=== PATIENT | male | born 1965 | race Caucasian/White ===

== ENCOUNTER 2022-11-21 09:40 | Emergency (ER) | payer BC ==
--- OUTSIDE RECORDS SUMMARY | 2022-11-21 09:47 | XMS REPORT | Continuity of Care Document ---
:1965 Author Organization [facility] t Address [address] [place] [address] Care Team Providers Name Role Phone Char Nation MD Primary Care Physician [phone] SACHIN FELIZ Attending Clinician Unavailable Char Nation MD Attending Clinician [phone] Annette Bowman MD Attending Clinician Denisha Maldonado Attending Clinician ANNETTE BOWMAN Attending Clinician Unavailable Doctor Unassigned, [place] Attending Clinician Unavailable DAMARIS RODRIGUEZ Attending Clinician Unavailable Damaris Rodriguez MD Attending Clinician Bret Kwong MD Attending Clinician Gideon Bustos Attending Clinician KELSEY CHRISTIANSON Attending Clinician Unavailable Only, Ang Db Test Attending Clinician Unavailable Kelsey Pendleton Attending Clinician Jass DAVIS, Kalyani Dunne Attending Clinician Unavailable DENISHA LUTZ Attending Clinician Unavailable JANUARY SAM Attending Clinician Unavailable JANUARY SAM Attending Clinician Unavailable CHAR NATION Attending Clinician Unavailable ARMANDO GÓMEZ Attending Clinician Unavailable Armando Gómez MD Attending Clinician , [facility] Surg Spec Procedure Attending Clinician Unavailable Nurse, [facility] Surgery Gu Attending Clinician Unavailable Zen DAVIS, Aria T Attending Clinician Unavailable Green DECKHAND SPONGE BOAT, Sachin Attending Clinician [place] Attending Clinician Unavailable OMAGHOMI, OMAYEMI Attending Clinician Unavailable Omaghomi DECKHAND SPONGE BOAT, Omayemi Attending Clinician Ervin DECKHAND SPONGE BOATEdilma Paulson Attending Clinician MUNIRA GUTIERREZ Attending Clinician Unavailable Munira Gutierrez MD Attending Clinician Pob, [facility] Lab Main Attending Clinician Unavailable EDILMA SOLIS Attending Clinician Unavailable Tanja Bryan MD Attending Clinician TANJA BRYAN Attending Clinician Unavailable , [facility] Lab Attending Clinician Unavailable Alexandro Daugherty DO Attending Clinician Lab, [facility] Fam Pob I Attending Clinician Unavailable Provider, [facility] Attending Clinician Unavailable Hannah Ospina MD Attending Clinician HANNAH OSPINA Attending Clinician Unavailable JANUARY SAM Admitting Clinician Unavailable MUNIRA GUTIERREZ Admitting Clinician Unavailable CHAR NATION Admitting Clinician Unavailable Payers Payer Name Policy Type Policy Number Effective Date Expiration Date S kalin [facility] 2 [id number] 2022 00:00:00 [employer] 9 [id number] 2022 [place] (ERS-BC[place] 00:00:00 CAPITATED) Problems Condition Condition Condition Status Onset Resolution Last Treating Co mments Source Name Details Category Date Date Treatment Clinician Date Complex Complex Disease Active [facility] tear of tear of 3-29 Health medial medial 00:00: meniscus meniscus 00 of left of left knee as knee as current current injury injury Other Other Disease Active Univers fatigue fatigue 4-11 ity of 00:00: [place] [address] Medical Branch Arthralgia Arthralgia Disease Active 2021-0 U nivers , , 4-11 ity of unspecif[place] 00 Medical Branch Hand pain, Hand pain, Disease Active 2020- U nivers left left 2-02 ity of 00:00: [place] 00 Medical Branch Chronic Chronic Disease Active 2020- Univers right right 2-02 ity of shoulder shoulder 00:00: [place] pain pain 00 Medical Branch Muscle Muscle Disease Active 2019 Univers spasm spasm 1-04 ity of 00:00: [place] 00 Medical Branch Allergic Allergic Disease Active 2019- Unive rs rhinitis, rhinitis, 1-04 ity of unspecifie unspecifie [place] Medical seasonalit seasonalit Br anch y, y, unspecifie unspecifie d trigger d trigger Non-produc Non-produc Disease Active 2019- U nivers tive cough tive cough 1-04 it y of 00:00: [place] 00 Medical Branch Musculoske Musculoske Disease Active 2019- U nivers letal pain letal pain 1-04 it y of 00:00: [place] 00 Medical Branch Multiple Multiple Disease Active 2019- Unive rs joint pain joint pain 0-01 it y of 00:00: [place] 00 Medical Branch Shift work Shift work Disease Active 2019- U nivers sleep sleep 0-01 ity of disorder disorder 00:00: [place] 00 Medical Branch Fibromyalg Fibromyalg Disease Active 2019- U rajaners ia ia 0-01 ity of 00:00: [place] 00 Medical Branch Mood Mood Disease Active 2019 Univers change change 0-01 ity of 00:00: [place] 00 Medical Branch Essential Essential Disease Active 2019- Uni vers hypertensi hypertensi 4-01 it y of on, benign on, benign [place] Acne Acne Disease Active 2012-10 Univers rosacea rosacea 1-11 ity of 00:00: [place] 00 Medical Branch Allergies, Adverse Reactions, Alerts Allergy Allergy Status Severity Reaction(s) Onset Inactive Treating Comm ents Source Name Type Date Date Clinician NO KNOWN Drug Active Univers ALLERGIE Class ity of S [facility] [place] [facility] Social History Social Habit Start Date Stop Date Quantity Comments Source History SDOH University o f Alcohol Frequency [place] M edical Branch History SDOH University o f Alcohol Std [place] Medical Drinks Branch History SDOH University o f Alcohol Binge [place] Medic al Branch Exposure to 2022-07-04 2022-07-14 Not sure [facility] SARS-CoV-2 00:00:00 10:58:00 [place] Medical (event) Branch Tobacco use and 2022-05-05 2022-05-05 Smokeless tobacco Un iversity of exposure 00:00:00 00:00:00 non-user [facility] [place] [facility] Alcohol intake 2022-01-22 2022-01-22 Current drinker [facility] alth 00:00:00 00:00:00 of alcohol (finding) Cigarette 2022-01-22 2022-01-22 [place] [facility] pack-years 00:00:00 00:00:00 Alcohol Comment 2019-01-24 2019-01-24 occasional Universit y of 00:00:00 00:00:00 [facility] [place] [facility] Sex Ass[birth year] At [birth year] [facility] 00:00:00 00:00:00 Smoking Status Start Date Stop Date Source Tobacco smoking consumption [facility] unknown Never smoked tobacco [facility] Medications Ordered Filled Start Stop Current Ordering Indication Dosage Frequency Signature Comments Components Source Medication Medication Date Date Medication? Clinician (SIG) Name Name LOSARTAN Yes [id number] TAKE ONE Un alyx 100 mg 9-21 (1) ity of tablet 00:00: TABLET(S) [place] 00 BY MOUTH Medical DAILY. Branch triamcinolo 2021- No [id number] 40mg Univers ne 07-14 ity of acetonide 17:15: 16:18 [place] (KENALOG) 00 :00 Medical injection Branch 40 mg triamcinolo 2021- No [id number] 40mg 40 mg, Univers ne 07-14 Intramuscu ity of acetonide 17:15: 16:18 lar, ONCE, [place] (KENALOG) 00 :00 1 dose, On Medi kavitha injection Mon Branch 40 mg 07/14/22 at 1215, Routine predniSONE 2021- No [id number] Take 4 Univers 10 mg 9-19 10-05 tablets by ity of tablet 00:00: 04:59 mouth [place] 00 :00 daily for Medical 5 days, Branch THEN 2 tablets daily for 5 days, THEN 1 tablet daily for 5 days. predniSONE 2021- No [id number] Take 4 Univers 10 mg 9-19 10-05 tablets by ity of tablet 00:00: 04:59 mouth [place] 00 :00 daily for Medical 5 days, Branch THEN 2 tablets daily for 5 days, THEN 1 tablet daily for 5 days. No known No No known [facility] medications 6-14 medication He alth 11:09: s 19 acetaminoph 0 2021- No [id number] 1{tbl} Q6H Take 1 UT en-codeine 4-27 05-03 tablet by [facility] (Tylenol w/ 00:00: 00:00 mouth Codeine #3) 00 :00 every 6 300-30 MG (six) tablet hours if needed for severe pain for up to 5 days. DULOXETINE Yes [id number] TAKE ONE Univers 40 mg CpDR 4-01 (1) ity of 00:00: CAPSULE BY [place] [address] MOUTH Medical DAILY. Branch DULOXETINE Yes [id number] TAKE ONE Univers 40 mg CpDR 4-01 (1) ity of 00:00: CAPSULE BY [place] [address] MOUTH Medical DAILY. Branch DULOXETINE 0 Yes [id number] TAKE ONE Univers 40 mg CpDR 4-01 (1) ity of 00:00: CAPSULE BY [place] [address] MOUTH Medical DAILY. Branch DULOXETINE 0 Yes [id number] TAKE ONE Univers 40 mg CpDR 4-01 (1) ity of 00:00: CAPSULE BY [place] [address] MOUTH Medical DAILY. Branch No known No No known [facility] medications 3-29 medication He alth 14:33: s 30 fluticasone 2021-0 Yes [id number] 2{puff} Inhale 2 Univers propionate 2-25 Puffs ity of 110 00:00: every 12 [place] mcg/actuati 00 (twelve) Medi kavitha on inhaler hours. Branch Diclofenac 2021-0 Yes [id number] Apply to Univers Sodium 1 % 2-25 area(s) 2 ity of gel 00:00: (two) [place] 00 times Medical daily as Branch needed for Pain (scale 4-6). fluticasone 2021-0 Yes [id number] 2{puff} Inhale 2 Univers propionate 2-25 Puffs ity of 110 00:00: every 12 [place] mcg/actuati 00 (twelve) Medi kavitha on inhaler hours. Branch Diclofenac 2022-0 Yes [id number] Apply to Univers Sodium 1 % 2-25 area(s) 2 ity of gel 00:00: (two) [place] 00 times Medical daily as Branch needed for Pain (scale 4-6). fluticasone 2021-0 Yes [id number] 2{puff} Inhale 2 Univers propionate 2-25 Puffs ity of 110 00:00: every 12 [place] mcg/actuati 00 (twelve) Medi kavitha on inhaler hours. Branch Diclofenac 0 Yes [id number] Apply to Univers Sodium 1 % 2-25 area(s) 2 ity of gel 00:00: (two) [place] 00 times Medical daily as Branch needed for Pain (scale 4-6). fluticasone 0 Yes [id number] 2{puff} Inhale 2 Univers propionate 2-25 Puffs ity of 110 00:00: every 12 [place] mcg/actuati 00 (twelve) Medi kavitha on inhaler hours. Branch Diclofenac 0 Yes [id number] Apply to Univers Sodium 1 % 2-25 area(s) 2 ity of gel 00:00: (two) [place] 00 times Medical daily as Branch needed for Pain (scale 4-6). tamsulosin Yes [id number] .4mg Take 1 Univers (FLOMAX) 1-27 9102 capsule by ity o f 0.4 mg 24 00:00: mouth [place] hr capsule 00 daily. Medical Branch tamsulosin Yes [id number] .4mg Take 1 Univers (FLOMAX) 1-27 9102 capsule by ity o f 0.4 mg 24 00:00: mouth [place] hr capsule 00 daily. Medical Branch tamsulosin Yes [id number] .4mg Take 1 Univers (FLOMAX) 1-27 9102 capsule by ity o f 0.4 mg 24 00:00: mouth [place] hr capsule 00 daily. Medical Branch tamsulosin Yes [id number] .4mg Take 1 Univers (FLOMAX) 1-27 9102 capsule by ity o f 0.4 mg 24 00:00: mouth [place] hr capsule 00 daily. Medical Branch ZINC ORAL 2020-10 Yes Take by Unive rs 2-17 mouth. ity of 13:07: [place] 36 Medical Branch ZINC ORAL 2020-10 Yes Take by Unive rs 2-17 mouth. ity of 13:07: [place] [address] Medical Branch ZINC ORAL 2020-10 Yes Take by Unive rs 2-17 mouth. ity of 13:07: [place] [address] Medical Branch ZINC ORAL 2020-10 Yes Take by Unive rs 2-17 mouth. ity of 13:07: [place] [address] Medical Branch albuterol 2020-10 Yes INHALE TWO Un alyx 90 2-17 (2) ity of mcg/actuati 00:00: PUFF(S) BY [place] on inhaler 00 MOUTH Medical EVERY SIX Branch HOURS NEEDED FOR WHEEZING, SHORTNESS OF BREATH, OR CHEST TIGHTNESS. meloxicam 2020-10 Yes 7.5mg Take 7.5 Uni vers 7.5 mg 2-17 mg by ity of tablet 00:00: mouth daily. Medical Branch albuterol 2020-10 Yes INHALE TWO Un alyx 90 2-17 (2) ity of mcg/actuati 00:00: PUFF(S) BY [place] on inhaler 00 MOUTH Medical EVERY SIX Branch HOURS NEEDED FOR WHEEZING, SHORTNESS OF BREATH, OR CHEST TIGHTNESS. meloxicam 2020-10 Yes 7.5mg Take 7.5 Uni vers 7.5 mg 2-17 mg by ity of tablet 00:00: mouth daily. Medical Branch albuterol 2020-10 Yes INHALE TWO Un alyx 90 2-17 (2) ity of mcg/actuati 00:00: PUFF(S) BY [place] on inhaler 00 MOUTH Medical EVERY SIX Branch HOURS NEEDED FOR WHEEZING, SHORTNESS OF BREATH, OR CHEST TIGHTNESS. meloxicam 2020-10 Yes 7.5mg Take 7.5 Uni vers 7.5 mg 2-17 mg by ity of tablet 00:00: mouth [place] daily. Medical Branch albuterol 2020-10 Yes INHALE TWO Un alyx 90 2-17 (2) ity of mcg/actuati 00:00: PUFF(S) BY [place] on inhaler 00 MOUTH Medical EVERY SIX Branch HOURS NEEDED FOR WHEEZING, SHORTNESS OF BREATH, OR CHEST TIGHTNESS. meloxicam 2020-10 Yes 7.5mg Take 7.5 Uni vers 7.5 mg 2-17 mg by ity of tablet 00:00: mouth [place] daily. Medical Branch LOSARTAN 2020-10 Yes [id number] TAKE ONE Un alyx 100 mg 0-04 (1) ity of tablet 00:00: TABLET(S) [place] 00 BY MOUTH Medical DAILY. Branch LOSARTAN 2020-10 Yes [id number] TAKE ONE Un alyx 100 mg 0-04 (1) ity of tablet 00:00: TABLET(S) [place] 00 BY MOUTH Medical DAILY. Branch LOSARTAN 2020-10 Yes [id number] TAKE ONE Un alyx 100 mg 0-04 (1) ity of tablet 00:00: TABLET(S) [place] 00 BY MOUTH Medical DAILY. Branch LOSARTAN 2020-10- No [id number] TAKE ONE U nivers 100 mg 0-04 09-21 (1) ity of tablet 00:00: 00:00 TABLET(S) [place] 00 :00 BY MOUTH Medical DAILY. Branch ivermectin Yes [id number] 45g Apply 45 g Univers (SOOLANTRA) 7-05 to area(s) it y of 1 % cream 00:00: daily. Medical Branch ivermectin Yes [id number] 45g Apply 45 g Univers (SOOLANTRA) 7-05 to area(s) it y of 1 % cream 00:00: daily. Medical Branch ivermectin Yes [id number] 45g Apply 45 g Univers (SOOLANTRA) 7-05 to area(s) it y of 1 % cream 00:00: daily. Medical Branch ivermectin Yes [id number] 45g Apply 45 g Univers (SOOLANTRA) 7-05 to area(s) it y of 1 % cream 00:00: daily. Medical Branch montelukast 2019-10 Yes [id number] 10mg Take 1 Univers 10 mg 2-28 tablet by ity of tablet 00:00: mouth at [place] [address] bedtime. Medical Branch montelukast 2019-10 Yes [id number] 10mg Take 1 Univers 10 mg 2-28 tablet by ity of tablet 00:00: mouth at [place] [address] bedtime. Medical Branch montelukast 2019-10 Yes [id number] 10mg Take 1 Univers 10 mg 2-28 tablet by ity of tablet 00:00: mouth at [place] [address] bedtime. Medical Branch montelukast 2019-10 Yes [id number] 10mg Take 1 Univers 10 mg 2-28 tablet by ity of tablet 00:00: mouth at [place] 00 bedtime. Medical Branch multivit-mi Yes [id number] 1{tbl} Take 1 Univers n-FA-lycope 7-15 tablet by ity of n-lutein 00:00: mouth [place] (CENTRUM 00 daily. Medical SILVER MEN) Branch 300-600-300 mcg Tab vitamin C Yes [id number] 1000mg Take 1 Univers with kirti 7-15 tablet by ity o f hips 00:00: mouth [place] (VITAMIN C) 00 daily. Medica l 1,000 mg Branch tablet ergocalcife Yes [id number] 1{capsu Take 1 Univers rol, 7-15 le} capsule by ity of vitamin D2, 00:00: mouth [place] 50 mcg 00 daily. Medical (2,000 Branch unit) Cap CoQ10, Yes [id number] 200mg Take 1 Uni vers Ubiquinol, 7-15 capsule by ity of 200 mg 00:00: mouth [place] capsule 00 daily. Medical Branch multivit-mi Yes [id number] 1{tbl} Take 1 Univers n-FA-lycope 7-15 tablet by ity of n-lutein 00:00: mouth [place] (CENTRUM 00 daily. Medical SILVER MEN) Branch 300-600-300 mcg Tab vitamin C Yes [id number] 1000mg Take 1 Univers with kirti 7-15 tablet by ity o f hips 00:00: mouth [place] (VITAMIN C) 00 daily. Medica l 1,000 mg Branch tablet ergocalcife Yes [id number] 1{capsu Take 1 Univers rol, 7-15 le} capsule by ity of vitamin D2, 00:00: mouth [place] 50 mcg 00 daily. Medical (2,000 Branch unit) Cap CoQ10, Yes [id number] 200mg Take 1 Uni vers Ubiquinol, 7-15 capsule by ity of 200 mg 00:00: mouth [place] capsule 00 daily. Medical Branch multivit-mi Yes [id number] 1{tbl} Take 1 Univers n-FA-lycope 7-15 tablet by ity of n-lutein 00:00: mouth [place] (CENTRUM 00 daily. Medical SILVER MEN) Branch 300-600-300 mcg Tab vitamin C Yes [id number] 1000mg Take 1 Univers with kirti 7-15 tablet by ity o f hips 00:00: mouth [place] (VITAMIN C) 00 daily. Medica l 1,000 mg Branch tablet ergocalcife Yes [id number] 1{capsu Take 1 Univers rol, 7-15 le} capsule by ity of vitamin D2, 00:00: mouth [place] 50 mcg 00 daily. Medical (2,000 Branch unit) Cap CoQ10, Yes [id number] 200mg Take 1 Uni vers Ubiquinol, 7-15 capsule by ity of 200 mg 00:00: mouth [place] capsule 00 daily. Medical Branch multivit-mi Yes [id number] 1{tbl} Take 1 Univers n-FA-lycope 7-15 tablet by ity of n-lutein 00:00: mouth [place] (CENTRUM 00 daily. Medical SILVER MEN) Branch 300-600-300 mcg Tab vitamin C Yes [id number] 1000mg Take 1 Univers with kirti 7-15 tablet by ity o f hips 00:00: mouth [place] (VITAMIN C) 00 daily. Medica l 1,000 mg Branch tablet ergocalcife Yes [id number] 1{capsu Take 1 Univers rol, 7-15 le} capsule by ity of vitamin D2, 00:00: mouth [place] 50 mcg 00 daily. Medical (2,000 Branch unit) Cap CoQ10, Yes [id number] 200mg Take 1 Uni vers Ubiquinol, 7-15 capsule by ity of 200 mg 00:00: mouth [place] capsule 00 daily. Medical Branch Immunizations Ordered Filled Immunization Date Status Comments [facility] e Immunization Name Name Influenza Virus 2019-07-26 Completed Universit y of Vaccine Quad .5 mL 00:00:00 [place] Medical IM 6+ MO Branch Influenza Virus 2019-07-26 Completed Universit y of Vaccine Quad .5 mL 00:00:00 [place] Medical IM 6+ MO Branch Influenza Virus 2019-07-26 Completed Universit y of Vaccine Quad .5 mL 00:00:00 [place] Medical IM 6+ MO Branch Influenza Virus 2019-07-26 Completed Universit y of Vaccine Quad .5 mL 00:00:00 [place] Medical IM 6+ MO Branch Td 2009-06-05 Completed University of 00:00:00 [facility] [place] [facility] Td 2009-06-05 Completed University of 00:00:00 [facility] [place] [facility] Td 2009-06-05 Completed University 00:00:00 [facility] [place] [facility] Td 2009-06-05 Completed [facility] 00:00:00 [facility] [place] [facility] Vital Signs Vital Name Observation Time Observation Value Comments Source Systolic blood 2022-07-14 16:07:00 136 mm[Hg] Univer sity of pressure [facility] [place] [facility] Diastolic blood 2022-07-14 16:07:00 91 mm[Hg] Unive rsity of pressure [facility] [place] [facility] Heart rate 2022-07-14 16:07:00 79 /min [facility] Body temperature 2022-07-14 16:07:00 36.17 [facility] Respiratory rate 2022-07-14 16:07:00 17 /min [facility] Body height 2022-07-14 16:07:00 185.4 cm [facility] Body weight 2022-07-14 16:07:00 113.91 kg [facility] BMI 2022-07-14 16:07:00 33.13 kg/m2 [facility] Oxygen saturation in 2022-07-14 16:07:00 97 /min [facility] Arterial blood by [facility] Pulse oximetry [place] Body height 2022-05-05 18:49:00 185.4 cm [facility] Procedures Procedure Date / Time Performed Performing Clinician [facility] e CONSENT/REFUSAL FOR 2022-07-14 15:59:37 Doctor Unassigned, No [facility] DIAGNOSIS AND Name Medical [place] TREATMENT ASSIGNMENT OF BENEFITS 2022-07-14 15:59:25 Doctor Unassigned, No [facility] Encounters Start End Encounter Admission Attending Care Care Encounter Source Date/Time Date/Time Type Type Clinicians Facility Department ID 2022-12-02 2022-12-02 Outpatient CATARINA FELIZ [id number] Cat[place] 09:00:00 09:00:00 SACHIN dunne 2022-07-16 2022-07-16 ISRA Toney 1.2.840.114 [id number] [facility] 00:00:00 00:00:00 Char ANDRES [id number] ity of [facility] [id number] [facility] [id number] Id josie MCDOWELL 231 Branch BUILDING 2022-07-14 2022-07-14 Annette Childs [facility] 1.2.840.114 [id number] Univers 11:00:00 11:20:00 Care Denisha Lutz [facility] [id number] [facility] 4.2.7.2.686 [place] HONORIO?BLEA [id number] Id dicjamie EY [address] [place] MEDICAL OFFICE BUILDING 2022-07-14 2022-07-14 Outpatient R ELMIRA [facility] [id number] Univers 11:00:00 11:00:00 [facility] 2022-07-14 2022-07-14 Orders Doctor KIRAN 1.2.840.114 [id number] Univers 00:00:00 00:00:00 Only Unassigned, ALIREZA 350.1.13.[address] [facility] [id number] Buster as [id number] [facility] 009 Branch 2022-05-05 2022-05-05 Outpatient Kaushik RODRIGUEZ [facility] [id number] Univers 13:30:00 14:03:02 DAMARIS winston [facility] 2022-05-05 2022-05-05 [facility] 1.2.840.114 [id number] Univers 13:30:00 14:03:02 Visit Damaris WATKINS 350.1.13.10 ity of [place] [id number] [facility] AND RUSTON 028 Branch [facility] 2022-04-08 2022-04-08 Office TIMUR Kwong [facility] 1.2.840.114 [id number] [place] 10:30:00 11:00:00 Visit Bret ORTIZ 350.1.13.58 Health [place] 9.2.7.2.686 MEDICAL [id number] [place] 2 2022-02-25 2022-02-25 Office Gideon Hensley [facility] 1.2.840.114 [id number] [place] 11:00:00 11:28:38 Visit ORTHO AND 350.1.13.58 Health [place] 9.2.7.2.686 MEDICAL [id number] MARGAZA 2 2022-02-15 2022-02-15 Outpatient R CIARA [facility] [id number] Univers 12:00:00 12:22:48 KELSEY ity o f [facility] [place] [facility] 2022-02-15 2022-02-15 Laboratory Only, Ang Db Test [facility] 1.2.8 40.114 [id number] [facility] 12:00:00 12:15:00 Only Kelsey Christianson J HEALTH 350.1.13.10 ity of [place] 4.2.7.2.686 [place] HONORIO?BLEA [id number] [address] OFFICE [facility] 2022-02-02 2022-02-02 Telephone KIRAN Regan [id number] Univers 00:00:00 00:00:00 Kalyani LAY 350.1.13.[address] [facility] 4.2.7.2.686 [place] [id number] [address] 2022-02-01 2022-02-01 Laboratory Only, Ang Db Test [facility] 1.2.8 40.114 [id number] Univers 10:45:00 11:00:00 Only Denisha Lutz [facility] 350.1.13.10 ity of [place] 4.2.7.2.686 [place] as HONORIO?BLEA [id number] [address] OFFICE [facility] 2022-02-01 2022-02-01 Outpatient R CHRISTIN [facility] [id number] Univers 10:45:00 10:51:08 [facility] 2022-01-24 2022-01-24 Khoa Nation [facility] 1.2.840.114 [id number] Univers 00:00:00 00:00:00 Char ANDRES 350.1.13.10 ity of [place] 4.2.7.2.686 [place] [id number] [address] 2022-01-212022-01-21 Office TIMUR Kwong [facility] 1.2.840.114 [id number] [place] 13:30:00 13:52:03 Visit Bret [place] AND 350.1.13.58 Health [place] 9.2.7.2.686 MEDICAL [id number] [place] 2 2022-01-20 2022-01-20 Telephone [facility] 1.2.840.114 [id number] Univers 00:00:00 00:00:00 Char ANDRES 350.1.13.10 ity of [place] 4.2.7.2.686 [place] PROF[place] [id number] [address] 2022-01-20 2022-01-20 Telephone [facility] 1.2.840.114 [id number] Univers 00:00:00 00:00:00 Char ANDRES 350.1.13.10 ity of [place] 4[place]2.7.2.686 [place] [id number] [address] 2022-01-15 2022-01-15 Orders Doctor KIRAN 1.2.840.114 [id number] Univers 00:00:00 00:00:00 Only Unassigned, ALIREZA 350.1.13.[address] [facility] 4.2.7.2.686 [place] as [id number] [facility] 009 Branch 2022-01-02 2022-01-02 Outpatient R JANUARY SAM [facility] [id number] Univers 07:54:55 23:59:00 JANUARY SAM ity of [facility] [place] [facility] 2022-01-02 2022-01-02 [facility] [id number] Univers 07:54:55 23:59:00 Encounter January ANDRES 350.1.13.10 ity of [place] 4.2.7.2.686 [place] [id number] [facility] 804 Branch 2022-01-02 2022-01-02 Outpatient R JANUARY SAM [facility] [id number] Univers 00:00:00 00:00:00 JANUARY SAM [facility] 2021-12-20 2021-12-20 Outpatient R JANUARY SAM [facility] [id number] Univers 11:30:00 12:31:01 JANUARY SAM [facility] 2021-12-20 2021-12-20 Office Qamar [facility] 1.2.840.114 [id number] Univers 11:30:00 12:31:01 Visit January MARYKNOLL 350.1.13.10 ity of [place] 4.2.7.2.686 [place] PROF[place] [id number] Id dical NAL 044 [facility] 2021-12-20 2021-12-20 Outpatient R JANUARY SAM [facility] [id number] Univers 11:30:00 12:31:01 JANUARY SAM [facility] 2021-12-20 2021-12-20 Outpatient R CHAPIS [facility] [id number] Univers 11:00:00 11:00:00 CHAR [facility] 2021-12-19 2021-12-19 Outpatient R JOANIE [facility] [id number] Univers 10:45:00 12:05:52 ARMANDO [facility] 2021-12-19 2021-12-19 Office Armando G[facility]mez [facility] [facility] 1.2.840.114 [id number] Univers 10:45:00 12:05:52 Visit , Adc Surg Spec Procedure [place] 3 50.1.13.10 ity of [place] [phone] Id dical NAL 204 [facility] 2021-12-09 2021-12-09 Nurse Nurse, Adc Surgery [facility] 1.2. 840.114 [id number] Univers 08:00:00 08:24:42 Visit Armando Gómez ANGLEJUAN 350.1.13.10 it[place] of [place] [phone] Id dical NAL 204 [facility] 2021-12-09 2021-12-09 Outpatient R JOANIE [facility] [id number] Univers 08:00:00 08:24:42 ARMANDO ity [facility] 2021-12-09 2021-12-09 Nurse Nurse, Adc Surgery [facility] 1.2. 840.114 [id number] Univers 08:00:00 08:15:00 Visit Armando Gómez DMITRY 350.1.13.10 ity [facility] [place] [phone] Id dic[address] 2021-12-09 2021-12-09 Outpatient R JOANIE [facility] [id number] Univers 08:00:00 08:00:00 ARMANDO ity [facility] 2021-12-07 2021-12-07 Case [facility] 1.2.840.114 [id number] Univers 00:00:00 00:00:00 Management Char ANDRES 350.1.13.10 ity [facility] [place] [phone] [facility] 231 [facility] 2021-11-21 2021-11-21 Outpatient R JOANIE [facility] [id number] Univers 14:30:00 15:00:35 [facility] 2021-11-21 2021-11-21 [facility] 1.2.840.114 [id number] Univers 14:30:00 15:00:[address] [facility] DMITRY 350.1.13.10 i ty [facility] [place] [phone] [address] 2021-11-21 2021-11-21 [facility] [id number] Univers 14:30:00 15:00:35 ARMANDO ity [facility] 2021-11-21 2021-11-21 Orders Doctor BECK 1.2.840.114 [id number] Univers 00:00:00 00:00:00 Only Unassigned, ALIREZA 350.1.13.10 ity of [place] [facility] 4.2.7.2.686 [place] as [phone] [facility] [address] 2021-11-16 2021-11-16 Vikram Nation [facility] 1.2.840.114 [id number] Univers 00:00:00 00:00:00 Management Char ANDRES 350.1.13.10 ity of [place] [phone] Id dical [facility] [address] BUILDING 2021-11-15 2021-11-15 Letter KIRAN Zaldivar 1.2.840.114 [id number] Univers 00:00:00 00:00:00 (Out) Aria King ALIREZA 350.1.13.[address] [facility] 4.2.7.2.686 [place] [phone] [facility] [address] 2021-11-14 2021-11-14 Laboratory Only, Ang Db Test [facility] 1.2.8 40.114 [id number] Univers 19:15:00 19:30:00 Only AriGraymatics [facility] 350.1.13.10 ity of [place] 4.2.7.2.686 [place] as HONORIO?BLEA [phone] Id dicjamie [facility] [address] MEDICAL OFFICE BUILDING 2021-11-14 2021-11-14 Outpatient R ARI [facility] [id number] Univers 19:15:00 15:20:11 [facility] 2021-11-12 2021-11-12 Outpatient R JANUAYR SAM [facility] [id number] Univers 08:00:00 08:00:00 JANUARY SAM [facility] 2021-11-04 2021-11-04 Outpatient R JIM [facility] [id number] Univers 10:00:00 13:00:01 [facility] 2021-11-04 2021-11-04 Urgent Romelia Walker [facility] 1.2.840. 114 [id number] Univers 10:00:00 10:20:00 [facility] 350.1.13.10 ity of [place] 4.2.7.2.686 [place] as HONORIO?BLEA [phone] Id josie KNEY [address] MEDICAL OFFICE BUILDING 2021-10-28 2021-10-28 [facility] 1.2.840.114 [id number] Univers 00:00:00 00:00:00 Char ANDRES 350.1.13.10 ity of [place].2.[place].2.686 [place] [facility] [phone] Id josie [facility] [address] BUILDING 2021-10-24 2021-10-24 Emergency X [facility] ERT [id number] Univers 07:39:00 08:27:00 MUNIRA [facility] 2021-10-24 2021-10-24 Emergency [facility] 1.2.538.834 [id number] Univers 07:39:00 08:27:00 Munira ANDRES 350.1.13.10 ity [facility] 4.2.7.2.686 [facility] [phone] [facility] [address] 2021-10-22 2021-10-22 Outpatient [facility] [id number] [id number] Univers 09:34:20 23:59:00 [facility] 2021-10-22 2021-10-22 [facility] 1.2.840.114 [id number] Univers 09:34:20 23:59:00 Encounter Char ANDRES 350.1.13.10 ity [facility] 4.2.7.2.686 [facility] [phone] [facility] [address] 2021-10-22 2021-10-22 Outpatient [facility] 1036 [id number] Univers 00:00:00 00:00:00 CHAR winston [facility] 2021-10-14 2021-10-14 Outpatient [facility] [id number] Univers 09:20:00 09:20:00 CHAR winston [facility] 2021-10-14 2021-10-14 Orders Doctor KIRAN 1.2.840.114 [id number] Univers 00:00:00 00:00:00 Only Unassigned, ALIREZA 350.1.13.[address] [place] [facility] 4.2.7.2.686 [place] as [phone] [address] 2021-10-12 2021-10-12 Barrel Rifler Broach Javid, Cindi Lab Main [facility] 1.2.8 40.114 [id number] Univers 08:45:00 09:00:00 Visit Char Nation 350.1. 13.10 ity [facility] 4.2.7.2.[place] [phone] Id josie MCDOWELL 353 [facility] 2021-10-12 2021-10-12 Outpatient R CHAPIS [facility] [id number] Univers 08:45:00 08:45:00 [facility] 2021-10-11 2021-10-11 Outpatient R CHAPIS [facility] [id number] [id number] Univers 11:20:00 13:11:11 [facility] 2021-10-11 2021-10-11 Office Chapis [facility] 1.2.840.114 [id number] Univers 11:20:00 13:11:11 Visit Char ANDRES 350.1.13.10 ity of [place] [phone] Id josie [facility] 231 [facility] 2021-09-26 2021-09-26 Outpatient [facility] [id number] Univers 09:00:00 09:45:13 S[facility] 2021-09-26 2021-09-26 Urgent Denisha Lutz [facility] 1.2.840.114 [id number] Univers 09:04:02 09:24:02 [facility] 350.1.13.10 ity of [place] 4.2.7.2.686 [place]uster as HONORIO?BLEA [phone] Id dicjamie [address] MEDICAL OFFICE BUILDING 2021-07-26 2021-07-26 Refill [facility] 1.2.840.114 [id number] Univers 00:00:00 00:00:00 Char Andres 350.1.13.10 ity of [place] [phone] Id dical nal 231 [facility] 2021-05-28 2021-05-28 Office Ervin [facility] 1.2.840.114 [id number] Univers 13:48:16 14:56:23 Visit Edilma Andres 350.1.13.10 ity of [place] [phone] Id dical nal 044 [facility] 2021-05-28 2021-05-28 Outpatient [facility] [id number] Univers 14:00:00 14:00:00 EDILMA winston o f [facility] 2021-05-22 2021-05-22 Office Ir[facility]NEW [facility] 1.2.333.711 [id number] Univers 13:14:44 13:46:43 Visit [facility] 350.1.13.10 it y of Surgical 4.2.7.2.686 [place] as Specialti [phone] Id dical es 198 [facility] 2021-05-22 2021-05-22 Outpatient [facility] [id number] Univers 13:00:00 13:00:00 TANJA winston of [facility] 2021-05-22 2021-05-22 Orders Doctor KIRAN 1.2.840.114 [id number] Univers 00:00:00 00:00:00 Only Unassigned, ALIREZA 350.1.13.10 ity of [place] [facility] 4.2.7.2.686 Buster as [phone] [address] 2021-05-14 2021-05-14 Barrel Rifler Bro[place] 2, Adc Lab [facility] 1.2.840.114 [id number] Univers 09:23:10 09:38:10 Visit Char Nation 350.1. 13.10 it[place] of [place] [phone] Id dical nal 353 [facility] 2021-05-14 2021-05-14 Office [facility] 1.2.840.114 [id number] Univers 07:57:48 09:18:41 Visit Char Andres 350.1.13.10 ity of [place].2.[place] [phone] Id dical nal 231 [facility] 2021-05-14 2021-05-14 Outpatient [facility] [id number] Univers 08:00:00 08:00:00 CHAR winston [facility] 2021-04-29 2021-04-29 Office JenniferNEW [facility] 1.2.840.114 [id number] [facility] 10:48:10 11:13:49 Visit Damaris WATKINS 350.1.13.10 ity of [facility] 4.2.7.2.[place] [phone] [facility] [address] [facility] 2021-04-29 2021-04-29 Outpatient [facility] [id number] Univers 11:00:00 11:00:00 DAMARIS winston [facility] 2021-04-29 2021-04-29 Orders Doctor BECK 1.2.840.114 [id number] Univers 00:00:00 00:00:00 Only Unassigned, ALIREZA 350.1.13.[address] [place] [facility] 4.2.7.2.686 [place] as [phone] [facility] [address] 2021-04-29 2021-04-29 Refill [facility]NEW [facility] 1.2.840.114 [id number] Univers 00:00:00 00:00:00 Char Andres 350.1.13.10 it[place] of [place].2.[place] [phone] Id dical nal 044 [facility] 2021-04-26 2021-04-26 Orders Doctor BECK 1.2.840.114 [id number] Univers 00:00:00 00:00:00 Only Unassigned, ALIREZA 350.1.13.10 ity of [place] [facility] 4.2.7.2.686 [place] as [phone] [address] 2021-04-22 2021-04-22 Office IrvinNEW [facility] 1.2.223.411 [id number] [facility] 14:12:01 15:04:53 Visit Tanja [facility] 350.1.13.10 it y of Surgical 4.2.7.2.686 [place] Specialti [phone] Id dical es 198 [facility] 2021-04-22 2021-04-22 Outpatient [facility] [id number] [facility] 14:15:00 14:15:00 TANJA ity [facility] 2021-04-22 2021-04-22 Orders Doctor KIRAN 1.2.840.114 [id number] Univers 00:00:00 00:00:00 Only Unassigned, ALIREZA 350.1.13.10 ity of [place] [facility] 4.2.7.2.686 [place] as [phone] [address] 2021-04-18 2021-04-18 Telephone [facility] 1.2.840.114 [id number] Univers 00:00:00 00:00:00 Char Andres 350.1.13.10 ity of [place] [phone] Id dical nal 044 [facility] 2021-02-05 2021-02-05 [facility] 1.2.840.114 [id number] Univers 00:00:00 00:00:00 Char [place] 350.1.13.10 it[place] of [place] [phone] Id dical nal 231 [facility] 2021-02-05 2021-02-05 [facility] 1.2.840.114 [id number] Univers 00:00:00 00:00:00 Char Se Lopez[place] 350.1.13.10 it[place] of [place] 4.[place].2.[place] [phone] Id dical nal 044 [facility] 2021 2021 Office [facility]NEW [facility] 1.2.840.114 [id number] Univers 09:04:01 10:54:56 Visit Char Andres 350.1.13.10 ity of [place] 4.2.7.2.[place] [phone] Id dical [facility] 231 [facility] 2021 2021 Outpatient [facility] [id number] Univers 09:00:00 09:00:[facility]-05 2021-01-05 Patient DatNEW [facility]RISE [facility] 1.2.840.114 [id number] Univers 00:00:00 00:00:00 Outreach [facility] 350.1.13.10 i ty of [facility] 4.2.7.2.[place] [phone] [address] 2020-12-06 2020-12-06 Outpatient [facility] [id number] Univers 08:40:00 08:40:00 [facility] 2020-11-05 2020-11-05 Outpatient [facility] [id number] Univers 16:40:00 16:40:00 [facility] 2020-11-05 2020-11-05 Laboratory Lab, Adc Fam Pob I [facility] 1.2. 840.114 [id number] Univers 14:10:03 14:25:03 [facility] 350.1.13.10 ity of [place] 4.2.7.2.686 [place] as Professio [phone] [address] Office [facility] One 2020-10-17 2020-10-17 Refill [facility]NEW [facility] 1.2.840.114 [id number] Univers 00:00:00 00:00:00 Char Andres 350.1.13.10 ity of [place].2.[place] [phone] [address] 2020-10-13 2020-10-13 Outpatient R [facility] [id number] Univers 13:40:00 13:40:00 ity of [facility] 2020-10-13 2020-10-13 Urgent Provider, [facility] 1.2.840.114 [id number] Univers 13:17:18 13:37:18 Care [place] [facility] 350.1.13.10 ity of [place] 4.2.7.2.686 [place] as Professio [phone] [address] One 2020-10-11 2020-10-11 Telephone [facility] 1.2.840.114 [id number] Univers 00:00:00 00:00:00 Char Andres 350.1.13.10 ity of [place].2.[place] [phone] [address] 2020-10-09 2020-10-09 Telephone [facility] 1.2.840.114 [id number] Univers 00:00:00 00:00:00 Char Andres 350.1.13.10 ity of [place].2.[place] [phone] [address] 2020-10-03 2020-10-03 [facility] 1.2.840.114 [id number] Univers 00:00:00 00:00:00 Hannah Andres 350.1.13.10 i ty of [place] 4.2.7.2.[place] [phone] [address] 2020-09-26 2020-09-26 [facility] 1.2.840.114 [id number] Univers 11:19:54 23:59:00 Encounter Hannah Andres 350.1.13.10 ity of [place] 4.2.7.2.686 [place] [phone] [facility] [address] 2020-09-26 2020-09-26 [facility] 1.2.840.114 [id number] Univers 11:19:31 23:59:00 Encounter Hannah Andres 350.1.13.10 ity of [place] 4[place]2.7.2.686 [place] [phone] [facility] [address] [place] [address] 2020-09-26 2020-09-26 Barrel Rifler Broach Pob, Adc Lab Main [facility] 1.2.8 40.114 [id number] [facility] 11:17:34 11:32:34 Visit FredericmarialuisaHannah warren 350.1.13.10 ity of [place] 4.2.[place].2.[place] [phone] Id dical nal 353 [facility] 2020-09-26 2020-09-26 Telemedici RaysaNEW [facility]RISE [facility] 1.2.840.114 [id number] [facility] 07:53:56 11:14:45 ne Visit Hannah Andres 350.1.13.10 ity of [place] 4.2.7.2.[place] [phone] Id dical nal 044 [facility] 2020-09-26 2020-09-26 Outpatient R [facility] [id number] [facility] 08:40:00 08:40:00 HANNAH winston [facility] 2020-06-25 2020-06-25 Barrel Rifler Broach 2, Adc Lab [facility] 1.2.840.114 [id number] [facility] 09:08:43 09:23:43 Visit Char [place] 350.1. 13.10 ity of [place] 4.2.[place].2.[place] [phone] Id dical nal 353 [facility] 2020-06-25 2020-06-25 Outpatient R CHAPIS [facility] [id number] Univers 09:15:00 09:15:00 CHAR winston [facility] 2020-06-05 2020-06-05 Office [facility] 1.2.840.114 [id number] [facility] 13:45:04 15:01:24 Visit Char Andres 350.1.13.10 ity of [place] 4[place]2.[place].2.[place] [phone] Id dic[address] 2020-06-05 2020-06-05 Outpatient [facility] [id number] Univers 13:40:00 13:40:00 CHAR tish [facility] 2020-04-26 2020-04-26 Office JenniferNEW [facility] 1.2.840.114 [id number] Univers 07:45:46 14:53:55 Visit Damaris WATKINS 350.1.13.10 ity of [facility] 4.2.7.2.686 [place] CENTER [phone] [facility] AND [address] [facility] 2020-04-26 2020-04-26 Outpatient R [facility]FA[facility] [id number] Univers 14:30:00 14:30:00 DAMARIS winston [facility] 2020-04-26 2020-04-26 Orders Doctor KIRAN 1.2.840.114 [id number] Univers 00:00:00 00:00:00 Only Unassigned, ALIREZA 350.1.13.[address] [place] [facility] 4.2.7.2.686 Buster as [phone] [place] [address] [address] 2020-03-01 2020-03-01 [facility] 1.2.840.114 [id number] Univers 08:50:22 17:07:23 ne Visit Char Andres 350.1.13.10 ity of [place].2.[place] [phone] [address] 2020-03-01 2020-03-01 Outpatient [facility] [id number] Univers 15:40:00 15:40:00 CHAR winston [facility] 2020-02-23 2020-02-23 Telemedici [facility], [facility] 1.2.840.114 [id number] Univers 08:19:05 15:41:30 ne Visit Char Andres 350.1.13.10 ity of [place] 4.2.[place].2.[place] [phone] [address] 2020-02-23 2020-02-23 Outpatient [facility] 1026 [id number] Univers 14:20:00 14:20:00 CHAR sauery of [facility] 2020-02-13 2020-02-13 Patient Chapis [facility] 1.2.840.114 [id number] Univers 00:00:00 00:00:00 Secure Msg Char Saez [facility] 350.1.13.10 ity of [place] 4.2.7.2.686 [place]uster as Professio [phone] [place] [address] [address] Office Building One 2020-01-26 2020-01-26 [facility] 1.2.840.114 [id number] Univers 00:00:00 00:00:00 Hannah Andres 350.1.13.10 i ty of [place] [phone] [place] [address] [address] [facility] 2019-12-16 2019-12-16 [facility] 1.2.840.114 [id number] Univers 00:00:00 00:00:00 Hannah Andres 350.1.13.10 i ty of [place] [phone] [address] Results This patient has no known results.
[2022-11-21 10:32] LABS: Absolute Lymphocytes (CBC) 1.3 K/uL (0.7-4.9); Hematocrit 44.3 % (39.6-49.0); Lymphocytes % 11.8 % (15.3-44.8); MCV 90.7 fL (80-100); MPV 7.9 fL (7.6-11.3); RBC Red Blood Cell Count 4.88 M/uL (4.33-5.43)
[2022-11-21 10:49] LABS: Albumin 3.9 g/dL (3.4-5.0); Bilirubin Total 0.7 mg/dL (0.2-1.0); Potassium 3.9 mmol/L (3.5-5.1); Protein, Total 7.3 g/dL (6.4-8.2); Troponin High Sensitivity 10.2 pg/mL (<58.9)
--- NOTE | 2022-11-21 11:47 | RAD REPORT ---
EXAM DESCRIPTION: RAD - Chest Single View - 11/21/2022 10:33 am CLINICAL HISTORY: CHEST PAIN COMPARISON: No remote imaging TECHNIQUE: AP portable chest image was obtained 11/21/2022 10:33 am . FINDINGS: No focal lung parenchymal process. No failure or volume overload. Heart and vasculature ar e normal. No measurable pleural effusion and no pneumothorax. No acute bony abnormality seen. No acut e aortic findings suspected. IMPRESSION: No acute cardiopulmonary process.
--- NOTE | 2022-11-21 11:48 | RAD REPORT ---
EXAM DESCRIPTION: Ribs Right - 11/21/2022 10:33 am CLINICAL HISTORY: PAINright-side COMPARISON: Chest Single View dated 11/21/2022None. FINDINGS: No displaced rib fracture is evident. No non-displaced rib fracture suspected. No aggressive rib lesion. No underlying pneumothorax, effusion, infiltrate or pulmonary contusion. IMPRESSION: Negative right rib series.
--- NOTE | 2022-11-21 12:06 | EDPHYS ---
Physician Documentation [facility] Name: Valentin Hutton Age: 57 yrs Sex: Male : 1965 Arrival Date: 11/21/2022 Time: 09:44 Bed 14 Private MD: ED Physician Garcia Vidal HPI: 11/21 13:09 This 57 yrs old Male presents to ER via Ambulatory with complaints of Numbness Of Arm, rt Rib Pain. 13:09 Patient presents to the ED with a numbness to the left arm for the past 3 days. He rt states for the past several months, he has had a pain to his right lower rib margin that occurred after he fell through a deck and injured his ribs, did not seek evaluation at that time. He states that the numbness is constant, but that he also has a neck pain as well as pain in many of his joints. He states that he is concerned for a cardiac etiology. The patient denies other numbness, any weakness. Denies other acute complaints at this time. Symptoms are mild in severity, no other aggravating or alleviating factors.. Historical: - Allergies: 09:50 No Known Allergies; hb - PMHx: 09:50 Hypertension; hb - Immunization history:: Adult Immunizations up to date. - Social history:: Smoking status: Patient denies any tobacco usage or history of. - Family history:: not pertinent. ROS: 13:09 Constitutional: Negative for fever, chills, and weight loss, Cardiovascular: Negative rt for chest pain, palpitations, and edema, Respiratory: Negative for shortness of breath, cough, wheezing, and pleuritic chest pain, Abdomen/GI: Negative for abdominal pain, nausea, vomiting, diarrhea, and constipation, MS/Extremity: Negative for injury and deformity, Skin: Negative for injury, rash, and discoloration, Psych: Negative for depression, anxiety, suicide ideation, homicidal ideation, and hallucinations. 13:09 Neuro: Positive for numbness, Negative for weakness. Exam: 13:09 Constitutional: This is a well developed, well nourished patient who is awake, alert, rt and in no acute distress. Head/Face: Normocephalic, atraumatic. 13:09 Eyes: Pupils equal round and reactive to light, extra-ocular motions intact. Lids and lashes normal. Conjunctiva and sclera are non-icteric and not injected. Cornea within normal limits. Periorbital areas with no swelling, redness, or edema. Chest/axilla: Normal chest wall appearance and motion. Nontender with no deformity. No lesions are appreciated. Cardiovascular: Regular rate and rhythm with a normal S1 and S2. No gallops, murmurs, or rubs. Normal PMI, no JVD. No pulse deficits. Respiratory: Lungs have equal breath sounds bilaterally, clear to auscultation and percussion. No rales, rhonchi or wheezes noted. No increased work of breathing, no retractions or nasal flaring. Abdomen/GI: Soft, non-tender, with normal bowel sounds. No distension or tympany. No guarding or rebound. No evidence of tenderness throughout. Back: No spinal tenderness. No costovertebral tenderness. Full range of motion. MS/ Extremity: Pulses equal, no cyanosis. Neurovascular intact. Full, normal range of motion. Psych: Awake, alert, with orientation to person, place and time. Behavior, mood, and affect are within normal limits. 13:09 Neck: Mild tenderness over the left superior trapezius muscle, no midline tenderness. 13:09 ECG was reviewed by the Attending Physician. 13:09 Neuro: Mildly decreased in station on the left upper extremity, strength intact throughout the extremity. No leg numbness, weakness. No facial droop, speech normal, cranial nerves intact, no visual field deficits. Vital Signs: 09:48 BP 146 / 102; Pulse 86; Resp 16; Temp 98.1; Pulse Ox 100% on R/A; Weight 113.4 kg; hb Height 6 ft. 1 in. (185.42 cm); Pain 5/10; 12:29 BP 142 / 94; Pulse 77; Resp 18; Pulse Ox 98% ; kr3 09:48 Body Mass Index 32.98 (113.40 kg, 185.42 cm) hb MDM: 10:05 Patient medically screened. rt 13:09 Differential diagnosis: CVA, acute coronary syndrome, paresthesia, peripheral rt neuropathy. Data reviewed: vital signs, nurses notes, lab test result(s), EKG, radiologic studies. Independent interpretation of the following test(s) in the Emergency Department X-Ray: My interpretation is Evaluated rib series, possible some callus formation at the lower ribs, discussed with patient.. Test considered but Not performed: CT: Patient has numbness to the left arm, however, there is no weakness, other focal neurologic deficits. Given neck pain, suspect paresthesia more likely than central process. I did discuss this with the patient. I do not believe that stroke work-up is indicated at this time. Patient structured to return for reevaluation if he develops other neurologic symptoms.. 11/21 10:14 Order name: CBC with Diff; Complete Time: 10:50 rt 11/21 10:14 Order name: CMP; Complete Time: 10:50 rt 11/21 10:14 Order name: Ribs Right XRAY; Complete Time: 11:49 rt 11/21 10:14 Order name: Chest Single View XRAY; Complete Time: 11:49 rt 11/21 10:14 Order name: Troponin High Sensitivity; Complete Time: 10:50 rt 11/21 10:14 Order name: EKG; Complete Time: 10:15 rt 11/21 10:14 Order name: EKG - Nurse/Tech; Complete Time: 10:46 rt EC:09 Rate is 78 beats/min. Rhythm is regular, Normal Sinus Rhythm with No ectopy. QRS [place] rt is Normal. WA interval is normal. QRS interval is normal. QT interval is normal. No Q waves. T waves are Normal. No ST changes noted. Interpreted by me. Administered Medications: No medications were administered Disposition Summary: 11/21/22 12:05 Discharge Ordered Location: Home rt Problem: new rt Symptoms: are unchanged rt Condition: Stable rt Diagnosis - Paresthesia of left upper extremity rt Followup: rt - With: Private Physician - When: 2 - 3 days - Reason: Discharge Instructions: - Discharge Summary Sheet rt - Paresthesia rt Forms: - Medication Reconciliation Form rt - Thank You Letter rt - Work release form rt - Antibiotic Education rt - Prescription Opioid Use rt Prescriptions: - Cyclobenzaprine 10 mg Oral Tablet - take 1 tablet by ORAL route every 8 hours As needed; 18 tablet; Refills: 0, rt Product Selection Permitted Signatures: Dispatcher [employer] Paz Rodríguez RN RN Garcia Muniz MD MD rt
--- NOTE | 2022-11-21 12:06 | ER ---
Nurse's Notes [facility] Name: Valentin Hutton Age: 57 yrs Sex: Male : 1965 Arrival Date: 11/21/2022 Time: 09:44 Bed 14 Private MD: Diagnosis: Paresthesia of left upper extremity Presentation: 11/21 09:48 Chief complaint: Left arm tingling x 3 days, right lateral chest wall pain x 1 year. hb VAN NEGATIVE. Coronavirus screen: At this time, the client does not indicate any symptoms associated with coronavirus-19. Ebola Screen: No symptoms or risks identified at this time. Initial Sepsis Screen: Does the patient meet any 2 criteria? No. Patient's initial sepsis screen is negative. Does the patient have a suspected source of infection? No. Patient's initial sepsis screen is negative. Risk Assessment: Do you want to hurt yourself or someone else? Patient reports no desire to harm self or others. Onset of symptoms is unknown. 09:48 Method Of Arrival: Ambulatory hb 09:48 Acuity: CATHERINE 3 hb Triage Assessment: 10:00 General: Appears in no apparent distress. comfortable, Behavior is cooperative, bp appropriate for age, anxious. Pain: Complains of pain in left lateral anterior chest and left arm. EENT: No deficits noted. Neuro: No deficits noted. Cardiovascular: No deficits noted. Respiratory: No deficits noted. GI: No signs and/or symptoms were reported involving the gastrointestinal system. : No signs and/or symptoms were reported regarding the genitourinary system. Derm: No deficits noted. Musculoskeletal: No deficits noted. Historical: - Allergies: 09:50 No Known Allergies; hb - PMHx: 09:50 Hypertension; hb - Immunization history:: Adult Immunizations up to date. - Social history:: Smoking status: Patient denies any tobacco usage or history of. - Family history:: not pertinent. Screenin:00 [facility] ED Fall Risk Assessment (Adult) History of falling in the last 3 months, bp including since admission No falls in past 3 months (0 pts). Abuse screen: Denies threats or abuse. Denies injuries from another. Nutritional screening: No deficits noted. Tuberculosis screening: No symptoms or risk factors identified. Assessment: 10:00 General: SEE TRIAGE NOTE. bp 12:30 Reassessment: Patient appears in no apparent distress at this time. Patient and/or kr3 family updated on plan of care and expected duration. Pain level reassessed. Vital Signs: 09:48 BP 146 / 102; Pulse 86; Resp 16; Temp 98.1; Pulse Ox 100% on R/A; Weight 113.4 kg; hb Height 6 ft. 1 in. (185.42 cm); Pain 5/10; 12:29 BP 142 / 94; Pulse 77; Resp 18; Pulse Ox 98% ; kr3 09:48 Body Mass Index 32.98 (113.40 kg, 185.42 cm) hb ED Course: 09:44 Patient arrived in ED. rg4 09:50 Triage completed. hb 09:50 Arm band placed on. hb 10:00 Garcia Vidal MD is Attending Physician. rt 10:00 Patient has correct armband on for positive identification. Bed in low position. Call bp light in reach. Side rails up X2. 10:07 Eduardo Ye, RYAN is Primary Nurse. bp 10:20 Inserted saline lock: 20 gauge in right forearm, using aseptic technique. Blood bp collected. 10:35 Ribs Right XRAY In Process Unspecified. EDMS 10:35 Chest Single View XRAY In Process Unspecified. EDMS 12:30 No provider procedures requiring assistance completed. IV discontinued, intact, kr3 bleeding controlled, No redness/swelling at site. Pressure dressing applied. Administered Medications: No medications were administered Medication: 10:00 VIS not applicable for this client. bp Outcome: 12:05 Discharge ordered by . rt 12:30 Patient left the ED. kr3 12:31 Discharged to home ambulatory. kr3 12:31 Condition: stable 12:31 Discharge instructions given to patient, Instructed on discharge instructions, follow up and referral plans. medication usage, Demonstrated understanding of instructions, follow-up care, medications, Prescriptions given X 1. Signatures: Dispatcher [employer] EDMS Paz Gutierrez RN RN hb Garcia, Rubi rg4 Eduardo Ye RN RN bp Marely Barney RN RN kr3 Garcia Vidal MD MD rt
[2022-11-21 12:39] VITALS: TEMP 98.1
[2022-11-21 12:50] VITALS: BP 142/94; O2SAT 98
== END 2022-11-21 12:30 | disposition home or self-care (01) ==
LOC: ER 09:40
DX: R20.2 Paresthesia of skin (principal); R07.89 Other chest pain; I10 Essential (primary) hypertension
CPT/HCPCS: 36415; 71045; 80053; 84484; 85025; 93005; 99284

== ENCOUNTER 2023-12-07 10:34 | Day surgery (SDC) | payer BC, OTHER ==
[2023-12-04 14:24] LABS: Potassium 3.7 mEq/L (3.5-5.1)
[2023-12-07] MEDS: NA CHLORIDE 0.9% 1,000 ML ONE (11:00)
[2023-12-07] MEDS ORDERED: KETOROLAC 30 MG/ML INJ ONE (11:52)
[2023-12-07] MEDS ORDERED: propofoL 200 MG/20 ML VIAL IV ONE (11:52)
[2023-12-07] MEDS ORDERED: LIDOCAINE 1% MPF 5 ML VIAL ONE (11:52)
[2023-12-07] MEDS ORDERED: MIDAZOLAM HCL 2 MG/2 ML INJ ONE (11:52)
[2023-12-07] MEDS ORDERED: FENTANYL CITR 100 MCG/2 ML ONE (11:52)
[2023-12-07] MEDS ORDERED: ONDANSETRON 4 MG/2 ML VIAL ONE (11:52)
[2023-12-07] MEDS: CEFAZOLIN SODIUM 2 GM/VIAL ONE (13:10)
[2023-12-07] MEDS: BUPIVACAINE 0.25% PF 30 ML VIAL ONE (13:15)
[2023-12-07] MEDS ORDERED: EPHEDRINE SULF 50 MG/ML VIAL ONE (13:23)
--- NOTE | 2023-12-07 13:31 | P.OP ---
Preoperative diagnosis: RIGHT Upper Back Lipoma Primary procedure: Wide Excision of RIGHT Upper Back Lipoma Anesthesia: GETA + Local Estimated blood loss: <5cc Specimen: Lipoma ~ 4cm to fascia over muscle Findings: Lipoma ~ 4cm to fascia over muscle Complications: None Transferred to: Recovery Room Condition: Good
--- NOTE | 2023-12-07 13:41 | EKG ---
Test Date: 2023-12-04 Test Time: 14:54:21 Heating Element Repairer: AMEYA MEASUREMENT RESULTS: Intervals: Rate: 61 DE: 188 QRSD: 88 QT: 424 QTc: 426 [place]: P: 43 DE: 188 QRS: 50 T: 52 INTERPRETIVE STATEMENTS: Normal sinus rhythm Nonspecific T wave abnormality Abnormal ECG Compared to ECG 11/21/2022 10:43:50 T-wave abnormality now present Electronically Signed On 12-07-23 13:34:25 GYN by Nikolai Herron
[2023-12-07 15:24] VITALS: BP 130/66; TEMP 98; O2SAT 96
--- NOTE | 2023-12-07 23:57 | OP ---
Date of Procedure: 12/07/2023 Surgeon: Eagle Dutta MD, Preoperative Diagnosis: Right upper back lipoma. Postoperative Diagnosis: Right upper back lipoma. Procedure Performed: Wide local excision of the upper back lipoma. Anesthesia: General endotracheal plus local with 0.25% Marcaine. Estimated Blood Loss: 5 cc. Specimen: Lipoma, 4 cm, approximately fascia overlying the muscle. Findings: Same as above. Complications: None. Disposition: The patient transferred to recovery room in good condition. Procedure In Detail: After informed was obtained, patient brought to the operating room, prepped in the usual sterile fashion. After adequate anesthesia achieved, I made a linear incision along the ri ght infrascapular position down to subcutaneous tissue after appropriately anesthetizing the skin wit h a 15 blade. I then dissected down to subcutaneous tissue using electrocautery to expose a lipomato us mass, which was approximately 4 cm in size, 2-3 cm in size down to the fascia overlying the muscle. This was ligated using combination of electrocautery and blunt dissection circumferenti ally sent off for pathologic examination. The area was copiously irrigated. Hemostasis w as achieved using electrocautery. The area was copiously irrigated one last time. No additional hem ostatic measure was required. Deep dermal plane was then closed using interrupted 3-0 Vicryl sutures , and the skin was closed using a 4-0 Monocryl in a running fashion. Dermabond placed over top. The patient tolerated the procedure well without incident or complication, transferred to PACU in good co ndition. All counts were correct at the end of the case. TK/MODL Voice ID: [id number] Report ID: [id number]
== END 2023-12-07 14:55 | disposition home or self-care (01) ==
LOC: OR 10:34
PROVIDERS: ATTEND Surgery
PROC: 0JB70ZZ Excision of Back Subcutaneous Tissue and Fascia, Open Approach (ICD-10-PCS; principal; 2023-12-07 13:15)
DX: D17.1 Benign lipomatous neoplasm of skin and subcutaneous tissue of trunk (principal); I10 Essential (primary) hypertension; R73.03 Prediabetes
CPT/HCPCS: 93005; 80048; 36415; 82947; 88304; 11404; J2704; J2001; J2250; J3010; J2405; J7030